=== PATIENT | male | born 1965 | race Caucasian/White ===

== ENCOUNTER 2017-09-17 12:46 | Emergency (ER) | payer OTHER ==
[2017-09-17 13:49] VITALS: BP 124/91
--- NOTE | 2017-09-17 14:00 | UC ---
Back Pain HPI - HPI Summary HPI Summary: 52 yo male presents with low back pain. He tells me that on thursday (4 days ago) he was at work hanging ~2lb sign with his hands above his head and felt a "pop" in his lower back. Has had pain in his low back and numbness in his right leg ever since. Pain is worse with sitting. He tells me that he does have a history of low back problems. He was seeing Dr. Wayne about 8 years ago and told he had arthritis in his low back and had a bulging disc. He was seen in [place] by neurosurgery who recommended surgery for him at that time, but pt did not want to do this then. Currently denies fever, chills, saddle anesthesia, loss of bowel/bladder function. 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 - History of Current Complaint Chief Complaint: UCBackPain Stated Complaint: WC - BACK INJURY Time Seen by Provider: 09/17/17 13:59 Hx Obtained From: Patient Onset/Duration: Sudden Onset Timing: Constant Severity Initially: Severe Severity Currently: Severe Pain Intensity: 8 Pain Scale Used: 0-10 Numeric Aggravating Factor(s): Movement, Lifting - Allergies/Home Medications Allergies/Adverse Reactions: Allergies Allergy/AdvReac Type Severity Reaction Status Date / Time Penicillins Allergy Unknown Hives Verified 06/29/17 13:57 cat, dog hair Allergy Unknown Eyes Uncoded 06/29/17 13:57 Itchy/Swollen/Red/Watery Home Medications: Home Medications Aspirin 2,000 mg PO Q4H 09/17/17 [History Confirmed 09/17/17] PMH/Surg Hx/FS Hx/Imm Hx - Additional Past Medical History Additional PMH: None - Surgical History Surgical History: None - Family History Known Family History: Positive: Hypertension - Social History Occupation: Employed Full-time Lives: With Family Alcohol Use: Daily Alcohol Amount: 2-3 Substance Use Type: None Smoking Status (MU): Heavy Every Day Tobacco Smoker Type: Cigarettes Amount Used/How Often: 1/2 PPD Household Exposure Type: Cigarettes Review of Systems Constitutional: Negative Skin: Negative Respiratory: Negative Cardiovascular: Negative Gastrointestinal: Negative Musculoskeletal: Other: - Low back pain Neurological: Numbness Psychological: Negative All Other Systems Reviewed And Are Negative: Yes Physical Exam - Summary Physical Exam Summary: GENERAL: NAD. WDWN. SKIN: No rashes, sores, lesions, or open wounds. NECK: Supple. FROM. Nontender. No lymphadenopathy. CHEST: CTAB. No r/r/w. No accessory muscle use. Breathing comfortably and in no distress. CV: RRR. Without m/r/g. Pulses intact. Brisk cap refill. MSK: TTP over lumbar paraspinal muscles. Pain with flexion and extension of spine. Strength 5/5 B/L LEs including dorsiflexion and plantar flexion. FROM B/ L LEs. No edema. NEURO: Alert. CN II-XII grossly intact. Sensations decreased L4-L5 on right LE. Patella reflexes intact b/l. PSYCH: Age appropriate behavior. Triage Information Reviewed: Yes Vital Signs: Initial Vital Signs Temp 97.7 F 09/17/17 13:41 Pulse 116 09/17/17 13:41 Resp 23 09/17/17 13:41 BP 124/91 09/17/17 13:41 Pulse Ox 97 09/17/17 13:41 Back Pain Course/Dx - Course Course Of Treatment: XR: IMPRESSION: Dextroscoliosis centered at L3. Degenerative disc disease at L5-S1. I discussed with the pt that his symptoms are concerning for a bulging or herniated disc and that he should f/u with Ortho or neurosurgery - potentially for an MRI. I also recommened physical therapy. He did not want to do these and requested that he be referred to Dr. King for pain management as he "has a friend who went there and spoke highly of him". Will rx for meloxicam and flexeril for use at bedtime. - Differential Dx/Diagnosis Provider Diagnoses: Low back pain with radiculopathy Discharge - Sign-Out/Discharge Documenting (check all that apply): Discharge/Admit/Transfer - Discharge Plan Condition: Stable Disposition: HOME Prescriptions: Cyclobenzaprine TAB* [Flexeril 10 MG TAB*] 10 mg PO BEDTIME PRN #14 tab PRN Reason: Pain Meloxicam 7.5 mg PO BID PRN #30 tab PRN Reason: Pain Patient Education Materials: Back Pain (ED) Forms: *Work Release Referrals: No Primary Care Phys,NOPCP [Primary Care Provider] - Jasiel King DO [Doctor of Osteopathy] - As Soon As Possible Additional Instructions: If you develop a fever, shortness of breath, chest pain, new or worsening symptoms - please call your PCP or go to the ED. Your blood pressure was high at todays visit. Please see your primary provider within 4 weeks for recheck and re-evaluation. 1) Please call the pain clinic at the number below to schedule a follow up appointment as soon as possible 2) Do not take ibuprofen/motrin/aleve/aspirin with the MELOXICAM as these medications are related and may interact - Billing Disposition and Condition Condition: STABLE Disposition: Home
--- NOTE | 2017-09-17 14:30 | RAD ---
Indication: Back pain. 5 views of the lumbar spine are reviewed. Dextroscoliosis centered at L2-L3 is noted. There is disc space narrowing at L5-S1 with dorsal and ventral osteophyte formation. Vertebral bodies otherwise appear normal in height and alignment. IMPRESSION: Dextroscoliosis centered at L3. Degenerative disc disease at L5-S1.
== END 2017-09-17 14:52 | disposition home or self-care (01) ==
LOC: UCCORT 12:46
DX: M54.16 Radiculopathy, lumbar region (principal); Z88.0 Allergy status to penicillin; F17.210 Nicotine dependence, cigarettes, uncomplicated
CPT/HCPCS: 72110; 99212; G0463